=== PATIENT | female | born 1945 | race Caucasian/White ===

== ENCOUNTER 2025-01-15 08:14 | Day surgery (SDC) | payer MEDICARE, SELFPAY ==
[2025-01-06 10:41] VITALS: BMI 28.6
--- NOTE | 2025-01-15 07:20 | EXP.HP ---
History of Present Illness *Admission Date: 01/15/25 *History of present illness: Mrs. Vela is an 79-year-old female who is here for surveillance colonoscopy secondary to a personal history of adenomatous colon polyps. The examination is deemed medically necessary for surveillance/screening colonoscopy. The patient has been seen, interviewed and examined prior to the procedure by both myself and the anesthesia provider. [facility] Disclaimer: The information contained in this section may have been updated after the patient was seen, as this information can be updated by other users. Medical History Hypothyroidism Hypercholesterolemia GERD (gastroesophageal reflux disease) Hypertension Surgical History Hx of cataract extraction History of tonsillectomy Hx of bladder repair surgery History of breast implant removal H/O breast augmentation H/O: hysterectomy Family History Brother Cancer Social History (Updated 01/15/25 @ 09:05 by Francie Porter CRNA) Smoking Status: Never smoker alcohol intake: never substance use type: unknown current occupational status: retired Travel in the last 8 weeks?: None caffeine: Yes Have you lived/traveled outside [place] in past 30 days?: No Contact w/someone who lives/traveled outside [place] past 30 days?: No Exposure to someone with infectious disease in past 14 days?: No Do you have a fever (greater than 100.4 F or 38 C)?: No Have you tested positive for COVID-19?: No Exposed to someone with COVID-19 in past 14 days?: No Do you have a sore throat?: No Do you have a cough?: No Do you have any weakness?: No Are you experiencing any nausea/vomitting?: No Do you have any diarrhea?: No Are you experiencing any unusual bleeding?: No Do you have any muscle aches/pain?: No Do you have any abdominal pain?: No Are you experiencing loss of taste or smell?: No Review of Systems Review of Systems Review of systems (narrative): Negative *Cardiovascular Comments: Negative *Gastrointestinal Comments: Negative *Genitourinary Comments: Negative *Musculoskeletal Comments: Negative *Neurologic Comments: Negative Meds Home Medications and Allergies Home Medications ?Medication ?Instructions ?Recorded ?Confirmed ?Type sodium,potassium,mag sulfates 17.5 See Rx Instructions PO .COMPLEX 01/01/25 01/15/25 Rx gram-3.13 gram-1.6 gram oral soln #354 mL (Suprep Bowel Prep Kit) acetaminophen 650 mg 650 mg PO Q8H 01/06/25 01/15/25 History tablet,extended release ascorbic acid (vitamin C) 1,000 mg 1,000 mg PO DAILY 01/06/25 01/15/25 History tablet (Vitamin C) aspirin 81 mg tablet 81 mg PO DAILY 01/06/25 01/15/25 History buspirone 5 mg tablet 5 mg PO BID 01/06/25 01/15/25 History glucosamine-chondroitin 250 mg-200 2 tab PO TID 01/06/25 01/15/25 History mg tablet hydrochlorothiazide 12.5 mg tablet 12.5 mg PO DAILY 01/06/25 01/15/25 History levothyroxine 88 mcg capsule 88 mcg PO DAILY 01/06/25 01/15/25 History losartan 25 mg tablet 25 mg PO DAILY 01/06/25 01/15/25 History omega 3-dph-dxz-fish oil 1,200 mg 1,200 cap PO DAILY 01/06/25 01/15/25 History (144 mg-216 mg) capsule (Fish Oil) omeprazole 40 mg capsule,delayed 40 mg PO DAILY 01/06/25 01/15/25 History release polyethylene glycol 3350 17 gram 17 g PO DAILY 01/06/25 01/15/25 History oral powder packet (Miralax) simvastatin 10 mg tablet 10 mg PO DAILY 01/06/25 01/15/25 History New Prescriptions to Start Prescriptions: Allergies Allergy/AdvReac Type Severity Reaction Status Date / Time Sulfa (Sulfonamide Allergy Hives Verified 01/15/25 08:34 Antibiotics) Exam *Routine HEENT Exam Head: Present normocephalic Eye: Present EOMI and PERRL ENT: Present mucous membranes moist *Routine Neck Exam Neck: Present supple *Routine Respiratory Exam Respiratory: Present CTA bilaterally *Routine Cardiovascular Exam Cardiovascular: Present RRR *Routine Abdominal Exam Abdominal: Present soft and normoactive bowel sounds; Absent tenderness *Routine Rectal Exam Rectal:: deferred *Routine Genitalia Exam Genitalia:: deferred *Routine Extremities Exam Extremities: Absent cyanosis, clubbing or edema *Routine Skin Exam Skin: Present warm; Absent rash *Routine Neurological Exam Neurological: Present alert and oriented X3 Assessment and Plan *Assessment and plan (1) Personal history of adenomatous and serrated colon polyps: Status: Acute Category: Medical Code(s): Z86.0101 - Personal history of adenomatous and serrated colon polyps (2) Screening for colon cancer: Status: Acute Category: Medical Code(s): Z12.11 - Encounter for screening for malignant neoplasm of colon Plan A/P: 1. Personal history of adenomatous colon polyps is the preprocedural diagnosis. The patient will be anesthetized/sedated using MAC sedation. The patient has been seen and examined. Cardiac and lung assessment prior to the examination is stable. Proceed with planned screening/surveillance colonoscopy.
--- NOTE | 2025-01-15 07:22 | HMH.PROCNOTE ---
[facility] Procedure Note Date: 01/15/25 Time: 10:40 Procedure Note:: Colonoscopy Procedure Report: Colonoscopy with cold snare polypectomy Endoscopist: Vik Stovall II, MD Referring physician: Gloria Coreas MD Date of Procedure: January 16, 2020 Equipment: Olympus [id number] adult colonoscope Sedation: MAC sedation Indication: Mrs. Vela is an 79-year-old female who is here for follow-up screening/surveillance colonoscopy secondary to a personal history of colon polyps. She had a colonoscopy in August 2013 and had 6 polyps (tubular adenomas x 6) removed. Her colonoscopy in September 2016 revealed a single polyp (tubular adenoma) which was removed. Her last colonoscopy in October 2021 revealed 3 polyps (ranging in size from 3 to 12 mm) which were all adenomatous. The patient reports no abdominal pain, weight loss, change in her bowel habits or rectal bleeding. She reports no family history of colon cancer. She does have some chronic constipation for which she takes MiraLAX and prune juice. She does get some fecal seepage/leakage in her underwear. Procedure: Prior to the procedure, a history and physical exam was performed, and patient's medications and allergies were reviewed. The risks, benefits and alternatives of the sedation and procedure were discussed with the patient. All questions were answered and informed consent was obtained. The patient was brought to the procedure room. Patient identification and proposed procedure were verified by the physician and the nurse. The patient was placed in a left lateral decubitus position and the scope was passed under direct vision. Throughout the procedure, the patient's blood pressure, pulse, and oxygen saturations were monitored continuously. The colonoscopy was accomplished without difficulty. The patient tolerated the procedure well. Findings: On digital rectal examination there was normal rectal tone. There were no external hemorrhoids. The colonoscope was introduced through the anal canal to the rectum and advanced to the cecum. The ileocecal valve and appendiceal orifice were identified. The scope was advanced a short distance into the ileum which appeared grossly normal. The scope was then withdrawn into the colon. There were 2 diminutive polyps (cecum x 2 (3 and 4 mm)) which were removed via cold snare polypectomy. The remaining cecum, ascending and transverse colon and mucosa were grossly normal. There were scattered diverticuli throughout the descending and sigmoid colon (LEFT colon). The rectum itself was normal. Upon retroflexion within the rectum there were grade 1-2 internal hemorrhoids. The preparation was excellent throughout with [place] Preparation Score of 9. The cecal time was 12 minutes. Impression: 1. Diminutive cecal polyps x 2 2. Left-sided diverticulosis 3. Grade 1-2 internal hemorrhoids Plan: I will follow-up the polyp histology. The patient will not require any further screening/surveillance colonoscopy. I would encourage continuation of MiraLAX plus the addition of psyllium fiber (i.e. Metamucil) to each class. This should help prevent some of the seepage/leakage.
[2025-01-15 08:37] VITALS: BP 150/73; PULSE 69; RESP 18; TEMP 36.2; O2SAT 97
[2025-01-15] MEDS: LACTATED RINGERS 1000ML 1,000 ML 50 ML IV (08:54)
--- NOTE | 2025-01-15 09:03 | EXP.ANES.CKL ---
[facility] Disclaimer: The information contained in this section may have been updated after the patient was seen, as this information can be updated by other users. Medical History Hypothyroidism Hypercholesterolemia GERD (gastroesophageal reflux disease) Hypertension Surgical History Hx of cataract extraction History of tonsillectomy Hx of bladder repair surgery History of breast implant removal H/O breast augmentation H/O: hysterectomy Family History Brother Cancer Social History Smoking Status: Never smoker alcohol intake: never substance use type: unknown current occupational status: retired Travel in the last 8 weeks?: None caffeine: Yes [facility] Anesthesia Checklist Patient Identification Patient Identification: Arm Band and Verbal (Name & ) Structural Data Admitted From: Home Planned Operative Procedure/s: colonscopy Consent for Planned Operative Procedure(s) Verified: Yes Verified Documents: Surgical Consent and History and Physical NPO Status Verified Time NPO: 00:00 Additional verifications Anesthesia Reactions: No Previous Colonoscopy: Yes Airway Assessment Mallampati Score:: Class II Dentition: Edentulous Neurological Assessment Level of Consciousness: Awake, Alert and Appropriate Hx Seizures: No Numbness or tingling in extremities: No Anesthesia Plan Anesthesia Risk discussed: Yes Anesthesia Plan: Verified ASA Class: II Anesthesia Type: MAC
[2025-01-15 10:42] VITALS: BP 107/61; PULSE 82; RESP 18; TEMP 36.3; O2SAT 94
[2025-01-15 10:52] VITALS: BP 102/58; PULSE 85; RESP 18; O2SAT 94
[2025-01-15 11:02] VITALS: BP 117/63; PULSE 74; RESP 18; O2SAT 96
[2025-01-15 11:12] VITALS: BP 123/68; PULSE 81; RESP 18; O2SAT 96
== END 2025-01-15 11:25 | disposition home or self-care (01) ==
PROVIDERS: PCP Family Medicine; Visit Provider Internal Medicine Gastroenterology
PROC: 0DJD8ZZ Inspection of Lower Intestinal Tract, Via Natural or Artificial Opening Endoscopic (ICD-10-PCS; CPT 45378; principal; 2025-01-15 10:00)
DX: Z12.11 Encounter for screening for malignant neoplasm of colon (principal); Z86.0101 Personal history of adenomatous and serrated colon polyps; D12.0 Benign neoplasm of cecum; K57.30 Diverticulosis of large intestine without perforation or abscess without bleeding; K64.0 First degree hemorrhoids; K64.1 Second degree hemorrhoids; K21.9 Gastro-esophageal reflux disease without esophagitis; E78.00 Pure hypercholesterolemia, unspecified; I10 Essential (primary) hypertension; E03.9 Hypothyroidism, unspecified; Z88.2 Allergy status to sulfonamides; Z79.899 Other long term (current) drug therapy; Z79.82 Long term (current) use of aspirin; Z79.890 Hormone replacement therapy
CPT/HCPCS: 45385; J2003; J2704; J7120